=== PATIENT | female | born 1950 | race Caucasian/White ===

== ENCOUNTER → 2020-05-24 | Outpatient (CLI) | payer MEDICARE | LOC: CT 13:25 | DX: R05 Cough (principal); R91.8 Other nonspecific abnormal finding of lung field | CPT/HCPCS: 36415; 71260; 82565; Q9963 ==

== ENCOUNTER → 2022-01-09 | Outpatient (CLI) | payer MEDICARE | LOC: KOH-I 14:03 | DX: R05.9 Cough, unspecified (principal) | CPT/HCPCS: 71046 ==